=== PATIENT | male | born 1995 | race African-American/Black ===

== ENCOUNTER 2019-07-09 20:22 | Emergency (ER) | payer OTHER ==
[2019-07-09 20:33] VITALS: BP 151/88
--- NOTE | 2019-07-09 21:52 | XRAY Report ---
Reason: football/kicking injury Procedure Date: 07/09/2019 Accession Number: [id number] / [id number] Procedure: XR - Ankle 3 View RT CPT Code: FULL RESULT: EXAM: RIGHT ANKLE RADIOGRAPHY EXAM DATE: 07/09/2019 08:43 PM. CLINICAL HISTORY: Football/kicking injury. COMPARISON: None available. TECHNIQUE: 3 views. FINDINGS: Bones: No acute fracture or dislocation. Joints: The ankle mortise and talar dome are intact. No ankle joint effusion. Soft Tissues: Soft tissue swelling at the lateral malleolus. IMPRESSION: Lateral soft tissue swelling. No acute fracture or dislocation visualized. RADIA
[2019-07-09] MEDS ORDERED: HYDROcod/ACET 5/325 Prepack 4 PO ONE (22:39)
--- NOTE | 2019-07-09 23:22 | ED Physician Documentation ---
PD HPI LOWER EXT INJURY - Stated complaint Stated Complaint: RT ANKLE PX - Chief complaint Chief Complaint: Ext Problem - History obtained from History obtained from: Patient - History of Present Illness PD HPI LOW EXT INJURY LOCATION: Right, Lower leg Type of injury: Other (Unknown) Where injury occurred: Other Timing - onset: Today (just [employer]) Pain level now: 6 Improved by: Nothing Recently seen: Not recently seen - Additional information Additional information: This is a 24-year-old who was playing flag football when he thinks someone may have stepped on the back of his foot. He just had the sudden intense pain in the right Achilles. He did not fall down. The bottom of his foot went numb when it happened. Denies prior injury in the foot feels cold but there is no numbness or tingling. He has not taken any medications for the pain which he rates it a 6 out of 10. Review of Systems Skin: denies: Abrasion (s), Laceration (s) Musculoskeletal: reports: Extremity pain Neurologic: denies: Numbness PD PAST MEDICAL HISTORY - Past Medical History Past Medical History: No - Past Surgical History Past Surgical History: Yes - Present Medications Home Medications: Ambulatory Orders Medication Instructions Recorded Confirmed No Known Home Medications 07/09/19 07/09/19 - Allergies Allergies/Adverse Reactions: Allergies Allergy/AdvReac Type Severity Reaction Status Date / Time No Known Drug Allergies Allergy Verified 07/09/19 20:32 - Social History Does the pt smoke?: Yes Smoking Status: Current every day smoker Does the pt drink ETOH?: Yes Does the pt have substance abuse?: No - Immunizations Immunizations are current?: Yes PD ED PE NORMAL - Vitals Vital signs reviewed: Yes - General General: Alert and oriented X 3, No acute distress, Well developed/nourished - Extremities Extremities: Other (Patient has pain with palpation over the Achilles. The tendon feels kind of soft. There is a 2+ dorsalis pedis pulse he is able to wiggle his toes and sensation is intact to light touch in the foot. No pain over the lateral or medial medial malleolus. Calf compression does not produce any flexion of the foot consistent with Achilles tendon rupture.) - Neuro Neuro: Alert and oriented X 3, No sensory deficit, Normal speech - Psych Psych: Normal mood, Normal affect Results - Vitals Vitals: Vital Signs - 24 hr 07/09/19 20:28 Temperature 36.7 C Heart Rate 97 Respiratory 18 Rate Blood Pressure 151/88 H O2 Saturation 98 Oxygen O2 Source Room air - Rads (name of study) r ankle Radiology: EMP read contemporaneously, See rad report (Neg acute) PD MEDICAL DECISION MAKING - ED course Complexity details: reviewed results, d/w patient ED course: The patient was placed in a posterior leg splint. He is instructed to keep this clean and dry. He should follow-up with an orthopedist and is given the referral to [facility] orthopedics but also if no one is available to see him there he should follow-up with the [facility] for referral outside of the area. He is placed on crutches and is to be completely nonweightbearing. He is given a note to that effect. He is given a stat pack of hydrocodone to go for the pain. Departure - Departure Disposition: 01 Home, Self Care Clinical Impression: Achilles rupture, right Qualifiers: Encounter type: initial encounter Qualified Code(s): S86.011A - Strain of right Achilles tendon, initial encounter Condition: Good
== END 2019-07-10 05:50 | disposition home or self-care (01) ==
LOC: ED 20:22
DX: S86.011A Strain of right Achilles tendon, initial encounter (principal); W50.0XXA Accidental hit or strike by another person, initial encounter; Y93.62 Activity, american flag or touch football; F17.200 Nicotine dependence, unspecified, uncomplicated
CPT/HCPCS: 99282; 99283

== ENCOUNTER 2019-07-15 11:47 | Outpatient (CLI) | payer OTHER ==
--- NOTE | 2019-07-15 15:01 | MRI Report ---
Reason: STRAIN OF RIGHT ACHILLES TENDON Procedure Date: 07/15/2019 Accession Number: [id number] / [id number] Procedure: MRI - Ankle RT W/O CPT Code: FULL RESULT: EXAM: RIGHT ANKLE/HINDFOOT MRI WITHOUT CONTRAST EXAM DATE: 07/15/2019 01:33 PM. CLINICAL HISTORY: Strain of right achilles tendon. COMPARISON: Radiographs 07/09/2019. TECHNIQUE: Multiplanar, multisequence T1-weighted and fluid-sensitive sequences of the ankle/hindfoot without contrast. Other: None. FINDINGS: Bones: No fractures or subluxations. No marrow edema. No bone lesions. Articular Cartilage: Shallow partial-thickness loss at the tibiotalar joint. No focal defect. Ligaments: Mild thickening at the intact anterior and posterior tibiofibular, talofibular, and calcaneofibular ligaments. Minimal distortion of the deltoid and spring ligaments. Anterior Tendons: The tibialis anterior, extensor hallucis longus, and extensor digitorum longus tendons are unremarkable. Medial Tendons: The tibialis posterior, flexor digitorum longus, and flexor hallucis longus tendons are unremarkable. Lateral Tendons: Mild peroneus longus tendinopathy. Peroneus brevis tendon normal in morphology. Achilles Tendon: Underlying moderate tendinopathy. Near-complete to complete disruption of the proximal to mid substance with distortion involving a region measuring 3 cm in length. Intrasubstance and partial-thickness tearing extends 3.5 cm into the central and lateral fibers of the mid to distal tendon. Diffuse distortion of the plantaris tendon at the level of Achilles tear. Musculature: No fatty atrophy. Mild edema partially visualized in the medial and lateral heads gastrocnemius muscles and soleus muscle. Other: No effusions. The contents of the sinus tarsi and tarsal tunnel are unremarkable. No plantar fasciitis. Moderate subcutaneous edema over the medial, posterior, and lateral aspects of the distal lower leg and in Kager's fat pad. IMPRESSION: 1. Near-complete to complete disruption of the proximal Achilles tendon with distortion extending 3 cm. Partial-thickness tearing extends into the mid to distal fibers. 2. High-grade tear versus complete disruption plantaris tendon at the level of the Achilles tendon tear. 3. Moderate subcutaneous edema. 4. Mild peroneus longus tendinopathy. 5. Sequelae of old mild sprains medial and lateral ligamentous structures. RADIA
== END 2019-07-15 11:48 | disposition home or self-care (01) ==
LOC: DI 11:47
PROVIDERS: ATTEND Orthopaedic Surgery
DX: S86.011A Strain of right Achilles tendon, initial encounter (principal); S96.811A Strain of other specified muscles and tendons at ankle and foot level, right foot, initial encounter; R60.0 Localized edema

== ENCOUNTER 2019-07-26 10:41 | Day surgery (SDC) | payer OTHER ==
[~2019-07-26 10:41] MED LIST: CEFAZOLIN SODIUM IN 0.9 % NACL 2 GM/100 ML BAG IV ONE
[2019-07-26] MEDS ORDERED: BUPIVACAINE 0.25% PF 30 ML VIAL ONE (10:57)
[2019-07-26] MEDS ORDERED: LACTATED RINGERS 1,000 ML IV ONE ×2 (11:08→14:03)
--- NOTE | 2019-07-26 11:19 | ANESTHESIA ---
Pre-Anesthesia VS, & Labs - Diagnosis achilles tendon rupture - Procedure Achilles tendon repair Vital Signs: Temp Pulse Resp BP Pulse Ox 36.6 C 96 16 143/90 H 97 07/26/19 11:01 07/26/19 11:01 07/26/19 11:01 07/26/19 11:01 07/26/19 11:01 Height 6 ft Weight (kg) 92.99 kg Body Mass Index 27.1 - NPO >8 hours Home Medications and Allergies Home Medications: Ambulatory Orders Ibuprofen [Motrin] 600 mg PO Q6H PRN 07/22/19 Acetaminophen 2 DAILY PM 07/26/19 Ibuprofen [Motrin] 600 mg PO Q6H PRN 07/22/19 Acetaminophen 2 DAILY PM 07/26/19 Allergies/Adverse Reactions: Allergies Allergy/AdvReac Type Severity Reaction Status Date / Time No Known Drug Allergies Allergy Verified 07/22/19 12:09 Anes History & Medical History - Anesthetic History Anesthesia Complications: reports: No previous complications - Medical History Cardiovascular: reports: None Pulmonary: reports: None Gastrointestinal: reports: None Urinary: reports: None Musculoskeletal: reports: Other Endocrine/Autoimmune: reports: None Skin: reports: None Smoking Status: Current every day smoker - Surgical History Orthopedic: Other Exam General: Alert Dental: WNL Mallampati classification: I Thyromental Distance: greater than 6 cm Respiratory: Lungs clear Cardiovascular: Regular rate, Normal S1, Normal S2 Mental/Cognitive Status: Alert/Oriented X3 Plan Anesthesia Type: General, Popliteal Block Consent for Procedure(s) Verified and Reviewed: Yes Code Status: Attempt Resuscitation ASA classification: 2-Mild systemic disease Is this case an emergency?: No
[2019-07-26] MEDS ORDERED: MIDAZOLAM 2 MG/2 ML VIAL ONE (12:16)
[2019-07-26] MEDS ORDERED: fentaNYL 100 MCG/2 ML VIAL ONE (12:16)
[2019-07-26] MEDS ORDERED: DEXAMETHASONE 4 MG/ML VIAL ONE (12:18)
[2019-07-26] MEDS ORDERED: LIDOCAINE-MPF 2% 5 ML VIAL IM ONE (12:33)
[2019-07-26] MEDS ORDERED: KETOROLAC 30 MG/ML VIAL IVP ONE (12:33)
[2019-07-26] MEDS ORDERED: fentaNYL 100 MCG/2 ML VIAL IVP ONE (12:33)
[2019-07-26] MEDS ORDERED: ROCURONIUM 50 MG/5 ML VIAL IVP ONE (12:33)
[2019-07-26] MEDS ORDERED: PROPOFOL 200 MG/20 ML VIAL IVP ONE (12:33)
[2019-07-26] MEDS ORDERED: ONDANSETRON 4 MG/2 ML VIAL IVP ONE (12:33)
[2019-07-26] MEDS ORDERED: ONDANSETRON 4 MG/2 ML VIAL IVP PRN (15:38)
[2019-07-26] MEDS ORDERED: oxyCODONE 5 MG TABLET PO PRN (15:38)
--- NOTE | 2019-07-26 16:03 | OPERATIVE REPORT ---
Operative Report - General Procedure Date: 07/26/19 - Procedure Note Estimated Blood Loss (mL): 5 - Other Other Information/Narrative: Date of Procedure: July 26, 2019 Planned Procedure: Right Achilles tendon repair Pre-op diagnosis: Right Achilles tendon rupture Procedure performed: Right open Achilles tendon repair Post-op diagnosis: Right Achilles tendon rupture Primary Surgeon: WILLIAM GLYNN Secondary Surgeon: Juana Anesthesia: General ET tube EBL: 5 ml Tourniquet: 127 minutes, right thigh, 250 mmHg. 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 He was evaluated at the [facility] ED, where clinical exam was consistent with a right Achilles tendon rupture he was placed in a splint and referred to orthopedics. Upon evaluation in orthopedics, his clinical exam was consistent with an Achilles tendon rupture: he had no movement of the foot with a Grayson squeeze test, and had increased resting dorsiflexion of the right foot when prone, with knees flexed to 90 degrees. There was a palpable gap that was tender to palpation approximately 5 cm above the calcaneal tuberosity. MRI was consistent with a mid substance Achilles tear, approximately 4.5 cm above the insertion. We had a long discussion in clinic about both operative and nonoperative management of these injuries, and the risks and benefits of each: the patient elected for operative treatment. We discussed risks to include pain, bleeding, infection, rerupture wound healing problems, prominent sutures, stiffness, need for exten sive rehabilitation , damage to nearby structures, lack of symptom relief, need for further surgery, DVT, PE, stroke, and . Written consent was obtained. Findings at surgery: The Achilles tendon was completely torn, approximately 5 cm above its insertion. The tendon was debrided and mobilized, and secured using a Krakw gift box type stitch. Procedure in Detail: The patient was met in the pre-operative hold area on the day of the procedure. The operative extremity was signed and questions were answered. A right popliteal regional block was performed by the anesthesia team and then the patient was brought to the operating room and a general anesthetic was administered. The patient was then positioned prone on bolsters, ensuring free excursion of the abdomen, bony prominences were padded. A nonsterile tourniquet was placed high on the right thigh. Standard prepping and draping was performed. A time out confirmed patient identification, laterality, procedure, allergies, and antibiotics. Following timeout the right lower extremity was exsanguinated using Esmarch bandage and the tourniquet was inflated to 250 mmHg. The course of the Achilles tendon was marked out on the posterior leg and 7 cm was measured proximal from the tip of the fibula to illustrate the point at which the sural nerve likely crossed over the lateral border of the tendon. An initial 3 cm longitudinal incision, medial to midline, was made. Full-thickness flaps were developed to the level of the peritenon and the peritenon was incised in the midline, exposing the tendon. The proximal tendon end was grasped with an Allis forceps and then debrided of hematoma, and degenerative tissue, and the tendon was circumferentially freed within the peritenon. The Q-Bot PARS jig was introduced into the peritenon, with the inner arms on either side of the Achilles tendon, and advanced proximally in accordance with the manufacturing instructions. Once the PARS jig was in place, the first needle was passed from lateral to medial and left in place to secure the tendon to the jig, sutures 2 through 5 were then sequentially passed per the surgical technique guide, following passage of sutures 2 through 5 suture one was then passed, and the pars jig arms were closed slightly, and the jig was extracted from the incision, pulling the suture limbs through the skin and peritenon and out the incision., Sutures were looped and passed per the surgical technique guide, with 2 sliding sutures and one lock suture in the proximal stump, these were tensioned and found to have good purchase with good excursion of the tendon. We next turned our attention distally, and made two vertical stab incisions approximately 1.5 cm apart at the calcaneus, distal to the Achilles insertion. Blunt dissection was used to clear the soft tissue until bone was reached and then a banana lasso was passed retrograde through the incisions and distal Achilles stump and used to retrieve the sutures in the proximal tendon, medial sutures through the medial incision, lateral sutures through the lateral incision. Once this was completed, the soft tissue protector was used in the incisions, and the appropriate depth hole for the swivel lock anchor was drilled and tapped. The lateral sutures were passed through the swivel lock, tensioned, and secured in standard fashion with good resting tension. The medial sutures were then passed through a swivel lock, and as the slack was being taken out of the sutures prior to swivel lock insertion, the sutures were noted to have cut through the proximal tendon, with loss of all purchase. At this point, the lateral swivel lock was removed, the sutures were removed from the distal tendon, and the decision was made to convert to an open procedure. The medial longitudinal incision was extended both proximally and distally, and full-thickness flaps down to the level of peritenon were obtained. The peritenon was split in the midline to further expose the tendon. The tendon was further freed up of any adhesions to the peritenon, and mobilized. The tendon ends were freshened as necessary. A #2 FiberWire was then passed proximally and distally in the proximal segment, using a modified Krakw gift box technique. Attention was then turned distally. The distal tendon was mobilized, and prepared in a similar fashion to the proximal tendon. A free Coleman needle was used to pass the suture ends into the opposing tendon fragment and gift box fashion. The foot was plantar flexed and the tendon ends were approximated. The sutures were tied, and placing the leg into 90 degrees of flexion demonstrated good maintenance of tendon continuity without gapping. The foot was able to be plantarflexed to neutral without gapping. The deep surface of the peritenon was incised to allow improved excursion, and then the wound was copiously irrigated. The peritenon was closed using running and interrupted 2-0 Vicryl. The wound was again copiously irrigated. The subcutaneous tissue was closed with interrupted 2-0 Vicryl. The skin was closed with alternating horizontal and vertical mattress sutures using 3-0 nylon . The justine-incisional soft tissues were injected with 20mL of quarter percent Marcaine plain. Xeroform and sterile dressings were placed followed pranay Noriega, followed by a plaster L and U-splint in approximately 20 degrees of equinus. Anesthesia was reversed the patient was transferred to the PACU in stable condition. Nonweightbearing The splint will stay on until follow-up Restart lovenox 40mg QD on POD#1 Follow-up in 2 weeks for planned splint take down and suture removal.
[2019-07-26 16:52] VITALS: BP 134/67
== END 2019-07-26 10:42 | disposition home or self-care (01) ==
LOC: SDS 10:41
PROVIDERS: ATTEND Orthopaedic Surgery
PROC: 0LQN0ZZ Repair Right Lower Leg Tendon, Open Approach (ICD-10-PCS; principal; 2019-07-26 12:00)
DX: S86.011A Strain of right Achilles tendon, initial encounter (principal); X50.0XXA Overexertion from strenuous movement or load, initial encounter; Y93.62 Activity, american flag or touch football; F17.290 Nicotine dependence, other tobacco product, uncomplicated
CPT/HCPCS: 27650; C1713; J0690; J7120

== ENCOUNTER 2021-06-08 20:11 | Emergency (ER) | payer OTHER ==
[2021-06-08 20:19] VITALS: BP 154/80
--- NOTE | 2021-06-08 21:59 | XRAY Report ---
PROCEDURE: Ankle 3 View LT INDICATIONS: pain when running TECHNIQUE: 3 views of the ankle were acquired. COMPARISON: None FINDINGS: Bones: No fractures or dislocations. Ankle mortise is normally aligned. No suspicious bony lesions . Soft tissues: No tibiotalar joint effusion. Achilles tendon appears normal. IMPRESSION: No fracture. No osseous lesion. If there are persistent symptoms or continued clinical concern for pa thology, then repeat plain film radiographs (7-10 days) or advanced imaging (CT, MR, bone scan) shoul d be considered for further evaluation. Reviewed by: Irena Sumner MD, PhD on 06/08/2021 9:57 PM PDT Approved by: Irena Sumner MD, PhD on 06/08/2021 9:57 PM PDT Station ID: [id number]
--- NOTE | 2021-06-08 22:07 | ED Physician Documentation ---
History of Present Illness - Stated complaint Stated Complaint: LT ANKLE PX - Chief complaint Chief Complaint: Trauma Ext - Additonal information Additional information: 18-year-old male presents emergency department for evaluation of acute left posterior Achilles pain. Was running and felt a pop and tear in his Achilles. He has a history of previous rupture to the right tendon status post repair. This feels similar. Inability to fully dorsi flex the foot. Review of Systems Constitutional: reports: Reviewed and negative Ears: reports: Reviewed and negative Nose: reports: Reviewed and negative Cardiac: reports: Reviewed and negative Respiratory: reports: Reviewed and negative Musculoskeletal: reports: Joint pain (Left ankle) PD PAST MEDICAL HISTORY - Past Surgical History Past Surgical History: Yes - Present Medications Home Medications: Ambulatory Orders Medication Instructions Recorded Confirmed Ibuprofen [Motrin] 600 mg PO Q6H PRN 07/22/19 07/26/19 Acetaminophen 2 DAILY PM 07/26/19 Enoxaparin [Lovenox] 1 DAILY 07/26/19 - Allergies Allergies/Adverse Reactions: Allergies Allergy/AdvReac Type Severity Reaction Status Date / Time No Known Drug Allergies Allergy Verified 06/08/21 20:13 - Social History Does the pt smoke?: Yes Smoking Status: Current every day smoker Does the pt drink ETOH?: Yes Does the pt have substance abuse?: No - Immunizations Immunizations are current?: Yes PD ED PE EXPANDED - Extremities Extremities: Normal, Tenderness, Left ankle (Positive Grayson on left side. Mild shortening noticed of the posterior gastrocnemius. Mild swelling posterior Achilles with some tenderness and swelling. No tenderness elicited of the lateral malleoli are bones or the foot itself. 2+ DP pulse). No: Deformity Results - Vitals Vitals: Vital Signs - 24 hr 06/08/21 20:13 Temperature 36.8 C Heart Rate 84 Respiratory 16 Rate Blood Pressure 154/80 H O2 Saturation 100 Oxygen O2 Source Room air - Rads (name of study) Left ankle Radiology: EMP read indepedently (No acute fracture or dislocation) PD MEDICAL DECISION MAKING - ED course Complexity details: reviewed results, d/w patient ED course: 26-year-old male presents emergency department for evaluation of acute left ankle pain. When running he felt a pop in the Achilles. On exam he has a positive Grayson and some mild shortening of the gastrocnemius likely consistent with Achilles tendon rupture. Patient is placed in an equine splint and will recommend close follow-up with [facility] tomorrow for referral to orthopedics. Emergent sooner return precautions discussed Departure - Departure Disposition: 01 Home, Self Care Clinical Impression: Rupture of left Achilles tendon Qualifiers: Encounter type: initial encounter Qualified Code(s): S86.012A - Strain of left Achilles tendon, initial encounter Condition: Stable Record reviewed to determine appropriate education?: Yes Instructions: ED Tendon Rupture Achilles Follow-Up: iLu Gomes MD [Provider Admit Priv/Credential] - Comments: Munir unfortunately your exam is consistent with an Achilles tendon rupture. I do not believe it is 100% ruptured but it is close to that. We have placed you in an equine splint. This should remain in place until seen by orthopedics. Do not get your foot wet. If he gets wet return to the ER to have the splint replaced. I do recommend that you are nonweightbearing and use the crutches for ambulation. Please follow-up with [facility] tomorrow. You will need an emergent referral to orthopedics for further evaluation and likely repair. You may need an MRI completed in the interim. For pain or discomfort I recommend that you take Tylenol or ibuprofen [id number].
== END 2021-06-08 22:24 | disposition home or self-care (01) ==
LOC: ED 20:11
DX: S86.012A Strain of left Achilles tendon, initial encounter (principal); X58.XXXA Exposure to other specified factors, initial encounter; Y93.02 Activity, running; F17.200 Nicotine dependence, unspecified, uncomplicated
CPT/HCPCS: 29515; 99281

== ENCOUNTER 2023-04-01 21:14 | Outpatient (CLI) | payer OTHER | END 2023-04-01 21:15 | disposition home or self-care (01) | LOC: LAB 21:14 → EDSTATUS 21:34 | PROVIDERS: ATTEND Pathology Blood Banking & Transfusion Medicine | DX: Z01.89 Encounter for other specified special examinations (principal) | CPT/HCPCS: 36415 ==